=== PATIENT | male | born 1980 | race Caucasian/White ===

== ENCOUNTER 2019-01-02 22:29 | Emergency (ER) | payer SELFPAY ==
[~2019-01-02] VITALS: Ht 162.6 cm; Wt 93.0 kg
[2019-01-02 22:32] VITALS: BP_SYST 110
[2019-01-02 23:16] LABS: BASOPHILS # (AUTO) 0.1 K/uL (0.0-0.2); BASOPHILS % (AUTO) 0.8 % (0.0-2.0); EOSINOPHILS # (AUTO) 0.1 K/uL (0.0-0.4); EOSINOPHILS % (AUTO) 1.2 % (0.0-4.0); HEMATOCRIT 43.3 % (36-54); HEMOGLOBIN 14.5 g/dL (14.0-18.0); LYMPHOCYTES # (AUTO) 2.5 K/uL (1.0-5.5); LYMPHOCYTES % (AUTO) 22.3 % (20.5-51.5); MEAN CORPUSCULAR HEMOGLOBIN 29 pg (27-31); MEAN CORPUSCULAR HGB CONC 34 % (32-36); MEAN CORPUSCULAR VOLUME 86 fL (79.0-98.0); MONOCYTES % (AUTO) 9.1 % (1.7-9.3); NEUTROPHILS # (AUTO) 7.5 K/uL (1.8-7.7); NEUTROPHILS % (AUTO) 66.6 % (40.0-70.0); PLATELET COUNT (AUTO) 245 K/uL (130-430); RED BLOOD CELL COUNT(AUTO) 5.04 MIL/uL (4.2-6.2); WHITE BLOOD COUNT (AUTO) 11.3 K/uL (4.8-10.8)
[2019-01-02 23:30] LABS: ANION GAP 11 (5-15); CALCIUM 8.5 mg/dL (8.4-11.0); CHLORIDE 103 mmol/L (98-107); CREATININE 1.13 mg/dL (0.55-1.30); GLUCOSE 168 mg/dL (70-99); POTASSIUM 3.4 mmol/L (3.5-5.1); SODIUM SERUM 138 mmol/L (136-145); UREA NITROGEN, BLOOD 15 mg/dL (8-21)
--- NOTE | 2019-01-02 23:36 | NUR ---
Pt c/o anxiety, nausea, and abdominal pain s/p eating 6 marijuanna gummies, 50 mg each, 3 hours [employer]. Pt appears intoxicated with slurred speech. HR elevated, denies c/o C/P. On cardiac rehab nurse.
--- NOTE | 2019-01-02 23:36 | NUR ---
Placed in room 5 . Placed on desk monitor, blood pressure machine and pulse oximeter. To gown for exam. Side rails up. Report given to Reji SANDOVAL.
[2019-01-02 23:38] LABS: ALANINE AMINOTRANSFERASE 48 U/L (12-78); ALBUMIN 3.8 g/dL (3.4-4.8); ASPARTATE AMINOTRANSFERASE 25 U/L (10-37); TOTAL BILIRUBIN 0.3 mg/dL (0.0-1.0)
[2019-01-02 23:41] LABS: ACETAMINOPHEN < 1 ug/mL (1-30); ALCOHOL, BLOOD < 3 mg/dL (<10); GFR AFRICAN AMERICAN 93 mL/min (>90)
--- NOTE | 2019-01-02 23:45 | NUR ---
Dr. Ward at bedside.
--- NOTE | 2019-01-03 00:30 | NUR ---
Pt resting quietly, easily awakened. Denies c/o pain or discomfort. Pt states that he feels much better. VSS, NAD.
[2019-01-03] MEDS ORDERED: NACL 0.9% 1,000 ML IV ONE (01:45)
--- NOTE | 2019-01-03 02:00 | NUR ---
Resting quietly, even and non-labored respirations, VSS, NAD.
--- NOTE | 2019-01-03 04:14 | NUR ---
Resting quietly, even and non-labored respirations, VSS, NAD.
--- NOTE | 2019-01-03 05:54 | NUR ---
Pt resting, easily awakened, denies c/o pain or discomfort. No needs verbalized. VSS, NAD.
[2019-01-03 06:55] VITALS: BP_SYST 112
--- NOTE | 2019-01-03 06:55 | NUR ---
Patient given written and verbal discharge instructions and verbalizes understanding. ER MD discussed with patient the results and treatment provided. Patient in stable condition. ID arm band removed. No Rx given. Patient educated on pain management and to follow up with PMD. Pain Scale 0/10. Opportunity for questions provided and answered. Medication side effect fact sheet provided.
== END 2019-01-03 06:55 | disposition home or self-care (01) ==
LOC: SED 22:29
DX: T40.7X1A Poisoning by cannabis (derivatives), accidental (unintentional), initial encounter (principal); Y92.89 Other specified places as the place of occurrence of the external cause
CPT/HCPCS: 36415; 80053; 85025; 99283; G0480; G0481; G0482; J7030